=== PATIENT | male | born 1950 | race Caucasian/White ===

== ENCOUNTER 2017-07-28 13:00 | Inpatient (IN) | payer MEDICARE, MEDICAID ==
[2017-07-28] MEDS ORDERED: Sodium Chloride 0.9% 5 ML Syringe FLUSH PRN (13:09)
--- NOTE | 2017-07-28 14:02 | EDM.PDOC ---
ED HPI GENERAL MEDICAL PROBLEM - General Chief Complaint: Respiratory Problem Stated Complaint: SOB/WEAKNESS/HYPOXIA Time Seen by Provider: 07/28/17 13:30 Source of Information: Reports: Patient, EMS, Old Records History Limitations: Reports: No Limitations - History of Present Illness INITIAL COMMENTS - FREE TEXT/NARRATIVE: 67 YO WM presents to ER from clinic due to 3 day history of progressive shortness of breath with decreased exercise tolerance. Pt reports he went to clinic and was found to have SaO2 @79% prompting EMS and ER visit. Pt denies any chest pain or back pain. Pt denies any fever/chills, denies dizziness or syncope. Pt without any history of CAD or underlying pulmonary disease. 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: EKG, Oxygen Mid-Sternal Pain Score (Numeric/FACES): 4 - Related Data Allergies Allergy/AdvReac Type Severity Reaction Status Date / Time No Known Drug Allergies Allergy Cannot Verified 07/28/17 13:21 Remember Home Meds: Home Meds ALPRAZolam [Alprazolam] 0.25 mg PO DAILY PRN 11/16/15 [History] Glimepiride [Glimepiride] 4 mg PO DAILY 11/16/15 [History] Lisinopril [Prinivil] 40 mg PO DAILY 11/16/15 [History] Metoprolol Succinate [Toprol XL] 100 mg PO DAILY 11/16/15 [History] Simvastatin [Simvastatin] 40 mg PO DAILY 11/16/15 [History] SitaGLIPtin [Januvia] 100 mg PO DAILY 11/16/15 [History] metFORMIN HCl [Metformin HCl] 1,000 mg PO BID 11/16/15 [History] Past Medical History HEENT History: Reports: Other (See Below) Other HEENT History: blind Cardiovascular History: Reports: Hypertension Musculoskeletal History: Reports: Other (See Below) Other Musculoskeletal History: stiffness to hands - unable to straiten hands out Neurological History: Reports: Other (See Below) Other Neuro History: occ JARA Psychiatric History: Reports: Anxiety, Panic Attack Endocrine/Metabolic History: Reports: Diabetes, Type II - Infectious Disease History Infectious Disease History: Reports: Influenza - Past Surgical History HEENT Surgical History: Reports: Eye Surgery, Other (See Below) Social & Family History - Tobacco Use Smoking Status *Q: Never Smoker - Recreational Drug Use Recreational Drug Use: No ED ROS GENERAL - Review of Systems Review Of Systems: See Below Constitutional: Reports: No Symptoms HEENT: Reports: No Symptoms Respiratory: Reports: Shortness of Breath Cardiovascular: Reports: Dyspnea on Exertion, Edema, Orthopnea, PND Endocrine: Reports: No Symptoms GI/Abdominal: Reports: No Symptoms : Reports: No Symptoms Musculoskeletal: Reports: No Symptoms Skin: Reports: No Symptoms Neurological: Reports: No Symptoms Psychiatric: Reports: No Symptoms Hematologic/Lymphatic: Reports: No Symptoms Immunologic: Reports: No Symptoms ED EXAM, GENERAL - Physical Exam Exam: See Below Exam Limited By: No Limitations General Appearance: Alert, WD/WN, No Apparent Distress Nose: Normal Inspection, Normal Mucosa, No Blood Throat/Mouth: Normal Inspection, Normal Lips, Normal Teeth, Normal Gums, Normal Oropharynx, Normal Voice, No Airway Compromise Head: Atraumatic, Normocephalic Neck: Normal Inspection, Supple, Non-Tender, Full Range of Motion Respiratory/Chest: No Respiratory Distress, Lungs Clear, Normal Breath Sounds, No Accessory Muscle Use, Chest Non-Tender Cardiovascular: Normal Peripheral Pulses, Regular Rate, Rhythm, No Edema, No Gallop, No JVD, No Murmur, No Rub GI/Abdominal: Normal Bowel Sounds, Soft, Non-Tender, No Organomegaly, No Distention, No Abnormal Bruit, No Mass Back Exam: Normal Inspection, Full Range of Motion, NT Extremities: Pedal Edema Neurological: Alert, Oriented, CN II-XII Intact, Normal Cognition, Normal Gait, Normal Reflexes, No Motor/Sensory Deficits Psychiatric: Normal Affect, Normal Mood Skin Exam: Warm, Dry, Intact, Normal Color, No Rash Lymphatic: No Adenopathy EKG INTERPRETATION EKG Date: 07/28/17 Time: 13:23 Rhythm: NSR (55) Rate (Beats/Min): 55 [place]: Normal P-Wave: Present QRS: Normal ST-T: Normal QT: Normal Comparison: NA - No Prior EKG Course - Vital Signs Last Recorded V/S: Last Vital Signs Temp 35.9 C 07/28/17 13:21 Pulse 62 07/28/17 13:21 Resp 18 07/28/17 13:21 BP 153/52 H 07/28/17 13:21 Pulse Ox 99 07/28/17 13:21 - Orders/Labs/Meds Orders: Active Orders 24 hr Category Date Time Status EKG Documentation Completion [RC] ASDIRECTED Care 07/28/17 13:10 Active Peripheral IV Care [RC] . DIRECTED Care 07/28/17 13:10 Active RT Aerosol Therapy [RC] ASDIRECTED Care 07/28/17 16:00 Ordered Chest 2V [CR] Stat Exams 07/28/17 13:09 Taken Dextrose 50% in Water Med 07/28/17 16:00 Once 50 ml IVPUSH ONETIME ONE Furosemide [Lasix] Med 07/28/17 16:00 Once 40 mg IVPUSH NOW ONE Sodium Chloride 0.9% [Syrex Flush] Med 07/28/17 13:09 Active 5 ml FLUSH Q8HR PRN Peripheral IV Insertion Adult [OM.PC] Routine Oth 07/28/17 13:09 Ordered EKG 12 Lead [EK] Routine Ther 07/28/17 13:09 Ordered Medication Orders Sodium Chloride (Syrex Flush) 5 ml FLUSH Q8HR PRN PRN Reason: Keep Vein Open Labs: Laboratory Tests 07/28/17 07/28/17 07/28/17 Range/Units 13:19 13:19 13:19 WBC 9.7 (5.0-10.0) 10^3/uL RBC 3.26 L (4.50-6.00) 10^6/uL Hgb 9.8 L (13.0-17.0) g/dL Hct 30.3 L (40.0-52.0) % MCV 92.8 H (82.0-92.0) fL MCH 30.0 (27.0-31.0) pg MCHC 32.3 (32.0-36.0) g/dL RDW 14.6 H (11.5-14.5) % Plt Count 143 L (150-300) 10^3/uL MPV 9.3 (7.4-10.4) fL Neut % (Auto) 88.2 H (50.0-70.0) % Lymph % (Auto) 5.2 L (20.0-40.0) % Traill % (Auto) 6.4 (2.0-8.0) % Eos % (Auto) 0.2 L (1.0-3.0) % Baso % (Auto) 0.0 (0.0-1.0) % Neut # (Auto) 8.6 H (2.5-7.0) 10^3/uL Lymph # (Auto) 0.5 L (1.0-4.0) 10^3/uL Traill # (Auto) 0.6 (0.1-0.8) 10^3/uL Eos # (Auto) 0.0 L (0.1-0.3) 10^3/uL Baso # (Auto) 0.0 (0.0-0.1) 10^3/uL PT 9.7 (8.9-11.4) SEC INR 1.0 (0.9-1.1) APTT 25.8 (20.8-31.2) SEC Sodium 138 (136-145) mmol/L Potassium 6.3 H (3.3-5.3) mmol/L Chloride 107 (98-115) mmol/L Carbon Dioxide 21.4 (21.0-32.0) mmol/L BUN 75 H* (6-25) mg/dL Creatinine 3.39 H (0.51-1.17) mg/dL Est Cr Clr Drug Dosing 20.46 mL/min Estimated GFR (MDRD) 18 mL/min Glucose 331 H (70-110) mg/dL Calcium 8.5 L (8.7-10.3) mg/dL Total Bilirubin 0.5 (0.2-1.0) mg/dL AST 21 (15-37) U/L ALT 27 (12-78) U/L Alkaline Phosphatase 73 (46-116) IU/L Creatine Kinase 458 H* (26-276) U/L CK-MB (CK-2) 3.30 (0.00-4.30) ng/mL Troponin I 0.05 (0.00-0.070) ng/mL B-Natriuretic Peptide 690 H (0-100) pg/mL Total Protein 6.7 (6.4-8.2) g/dL Albumin 3.14 (3.00-4.80) g/dL 07/28/17 Range/Units 15:15 WBC (5.0-10.0) 10^3/uL RBC (4.50-6.00) 10^6/uL Hgb (13.0-17.0) g/dL Hct (40.0-52.0) % MCV (82.0-92.0) fL MCH (27.0-31.0) pg MCHC (32.0-36.0) g/dL RDW (11.5-14.5) % Plt Count (150-300) 10^3/uL MPV (7.4-10.4) fL Neut % (Auto) (50.0-70.0) % Lymph % (Auto) (20.0-40.0) % Traill % (Auto) (2.0-8.0) % Eos % (Auto) (1.0-3.0) % Baso % (Auto) (0.0-1.0) % Neut # (Auto) (2.5-7.0) 10^3/uL Lymph # (Auto) (1.0-4.0) 10^3/uL Traill # (Auto) (0.1-0.8) 10^3/uL Eos # (Auto) (0.1-0.3) 10^3/uL Baso # (Auto) (0.0-0.1) 10^3/uL PT (8.9-11.4) SEC INR (0.9-1.1) APTT (20.8-31.2) SEC Sodium (136-145) mmol/L Potassium 6.3 H (3.3-5.3) mmol/L Chloride (98-115) mmol/L Carbon Dioxide (21.0-32.0) mmol/L BUN (6-25) mg/dL Creatinine (0.51-1.17) mg/dL Est Cr Clr Drug Dosing mL/min Estimated GFR (MDRD) mL/min Glucose (70-110) mg/dL Calcium (8.7-10.3) mg/dL Total Bilirubin (0.2-1.0) mg/dL AST (15-37) U/L ALT (12-78) U/L Alkaline Phosphatase (46-116) IU/L Creatine Kinase (26-276) U/L CK-MB (CK-2) (0.00-4.30) ng/mL Troponin I (0.00-0.070) ng/mL B-Natriuretic Peptide (0-100) pg/mL Total Protein (6.4-8.2) g/dL Albumin (3.00-4.80) g/dL Meds: Medications Generic Name Dose Route Start Last Admin Trade Name Freq PRN Reason Stop Dose Admin Sodium Chloride 5 ml 07/28/17 13:09 Syrex Flush FLUSH Q8HR PRN Keep Vein Open Discontinued Medications Generic Name Dose Route Start Last Admin Trade Name Freq PRN Reason Stop Dose Admin Albuterol 2.5 mg 07/28/17 15:59 Proventil Neb Soln NEB 07/28/17 16:00 ONETIME ONE Insulin Human Regular 10 unit 07/28/17 15:59 Novolin R IV 07/28/17 16:00 ONETIME ONE Protocol Sodium Bicarbonate 50 meq 07/28/17 15:59 Sodium Bicarbonate 8.4% IVPUSH 07/28/17 16:00 ONETIME ONE - Radiology Interpretation Free Text/Narrative:: CXR- bilateral small pleural effusions Departure - Departure Time of Disposition: 16:02 Disposition: DC/Tfer to Acute Hospital 02 Condition: Poor Clinical Impression: Hyperkalemia Renal failure (ARF), acute on chronic Qualifiers: Acute renal failure type: unspecified Congestive heart failure (CHF) Qualifiers: Congestive heart failure type: unspecified congestive heart failure type Congestive heart failure chronicity: acute Qualified Code(s): I50.9 - Heart failure, unspecified - Discharge Information Referrals: Willian Lopez PA-C [Primary Care Provider] - Forms: ED Department Discharge, Interfacility Transfer EMTALA - My Orders Last 24 Hours: My Active Orders 07/28/17 13:09 Chest 2V [CR] Stat Sodium Chloride 0.9% [Syrex Flush] 5 ml FLUSH Q8HR PRN Peripheral IV Insertion Adult [OM.PC] Routine EKG 12 Lead [EK] Routine 07/28/17 13:10 EKG Documentation Completion [RC] ASDIRECTED Peripheral IV Care [RC] . DIRECTED 07/28/17 16:00 RT Aerosol Therapy [RC] ASDIRECTED Dextrose 50% in Water 50 ml IVPUSH ONETIME ONE Furosemide [Lasix] 40 mg IVPUSH NOW ONE - Assessment/Plan Last 24 Hours: My Active Orders 07/28/17 13:09 Chest 2V [CR] Stat Sodium Chloride 0.9% [Syrex Flush] 5 ml FLUSH Q8HR PRN Peripheral IV Insertion Adult [OM.PC] Routine EKG 12 Lead [EK] Routine 07/28/17 13:10 EKG Documentation Completion [RC] ASDIRECTED Peripheral IV Care [RC] . DIRECTED 07/28/17 16:00 RT Aerosol Therapy [RC] ASDIRECTED Dextrose 50% in Water 50 ml IVPUSH ONETIME ONE Furosemide [Lasix] 40 mg IVPUSH NOW ONE Assessment:: 1. Hypoxia 2. mild CHF 3. Acute on chronic renal failure Plan: 1. transfer to [facility] 2. Dr Cortes hospitalist accepting 3. lasix 40mg IV 4. bicarb 1 amp now 5. albuterol neb x 1 6. insulin 10units IV now 7. D50 1 amp now
[2017-07-28] MEDS ORDERED: Albuterol 0.083% 2.5 MG/3 ML Neb Soln NEB ONE (15:59)
[2017-07-28] MEDS ORDERED: Insulin Regular, Human 100 Units/ML 10 ML Vial IV ONE (15:59)
[2017-07-28] MEDS ORDERED: Sodium Bicarbonate 8.4% 50 MEQ/50 ML Syringe IVPUSH ONE (15:59)
[2017-07-28] MEDS ORDERED: Albuterol 0.083% 2.5 MG/3 ML Neb Soln ONE (16:00)
[2017-07-28] MEDS ORDERED: 50% Dextrose in Water 50 ML Syringe IVPUSH ONE (16:00)
[2017-07-28] MEDS ORDERED: Furosemide 40 MG/4 ML VIAL IVPUSH ONE (16:00)
[2017-07-28] MEDS ORDERED: Calcium Gluconate 10% 1 GM/10 ML SDV IVPUSH ONE (17:36)
[2017-07-28] MEDS: Sodium Chloride 0.9% 1,000 ML IV SCH ×2 (18:13→20:16)
[2017-07-28] MEDS: Insulin Aspart 100 Units/ML 3 ML Pen SUBCUT SCH ×2 (18:15→21:34)
[2017-07-28] MEDS ORDERED: Atropine 0.1 MG/ML 10 ML Syringe IVPUSH PRN (19:36)
[2017-07-28] MEDS ORDERED: EPINEPHrine 1:10,000 1 MG/10 ML Syringe IVPUSH PRN (19:36)
[2017-07-28] MEDS ORDERED: Lidocaine 2% 100 MG/5 ML Syringe IVPUSH PRN (19:36)
[2017-07-28] MEDS ORDERED: Nitroglycerin 0.4 MG Tab.SL SL PRN (19:36)
[2017-07-28] MEDS: Polyvinyl Alcohol 1.4% Ophth Soln 15 ML Bottle EYEBOTH SCH (20:18)
[2017-07-28] MEDS ORDERED: atorvaSTATin 40 MG Tab PO SCH (21:00)
[2017-07-28] MEDS ORDERED: Non-Formulary Medication 1 Each (Metformin Hcl [Metformin Hcl] 1,000 MG) PO SCH (21:00)
[2017-07-28] MEDS ORDERED: LORazepam 0.5 MG Tab PO ONE (21:17)
[2017-07-28] MEDS ORDERED: LORazepam 0.5 MG Tab PO PRN (21:17)
--- NOTE | 2017-07-28 23:32 | HP ---
HISTORY OF PRESENT ILLNESS: This is a 67-year-old male patient who was not been feeling well at home. He started having some shortness of breath. He states that ever since his Norvasc was increased from 5 mg to 10 mg, he has noted some swelling to his ankles. He states that his urination has been decreasing more and more. He became short of breath, just was not feeling well. He came to the clinic today for further evaluation and treatment. The patient then was transferred by ambulance to the [facility] Emergency Room for treatment. PAST MEDICAL HISTORY: The patient has a history of diabetes mellitus type 2, hyperlipidemia, almost completely blind, hypertension, history of anxiety. MEDICATIONS: The patient was taking at home. He was on Artificial Tears. He was on Travatan Z eyedrops, Azopt eyedrops, atorvastatin 40 mg daily, Lexapro 20 mg daily, Actos 15 mg daily, Norvasc 10 mg daily, Ativan 0.5 mg daily as needed, Amaryl 4 mg daily, Toprol-XL 100 mg daily, lisinopril 40 mg daily, metformin 1000 mg twice a day, and Januvia 100 mg daily. ALLERGIES: He has no known drug allergies. SOCIAL/PERSONAL HISTORY: The patient lives at home by himself. He does have home health nurse come in once a week to set up his medications. He denies any alcohol or tobacco use. REVIEW OF SYSTEMS: CONSTITUTIONAL: No He does complain of fatigue, swelling, weight gain, just not feeling well. Appetite is good. No fatigue. EYES: No recent visual changes. ENT: No sinus congestion or hoarseness. CARDIOVASCULAR: No chest pain or palpitations. RESPIRATORY: He does complain of shortness of breath, some cough. GI: No vomiting, diarrhea or melena. : No dysuria or hematuria. MUSCULOSKELETAL: No new bone pain or joint swelling. INTEGUMENTARY: No rash or pruritus. NEUROLOGIC/PSYCHIATRIC: No recent headache or focal weakness. No depressive symptoms. ENDOCRINE: No heat or cold intolerances or polydipsia. HEMATOLOGIC/LYMPHATIC: No excessive bruising or lymph node swelling. ALLERGIC/IMMUNOLOGIC: No hives or recurrent infections. PHYSICAL EXAMINATION: GENERAL: This is an elderly white male in no acute distress. VITAL SIGNS: Blood pressure is 140/56, pulse is 64, respiratory rate is 20, oxygen saturation on 2 L nasal cannula is 94%. HEENT: Head is normocephalic. The patient is blind. EOMs are not intact. He can barely see just shadowing. Nose is clear. No pharyngeal erythema noted. NECK: Supple. No JVD. Trachea midline. LUNGS: Sounds are clear in upper lobes, diminished at bilateral bases. CARDIAC: Regular rate and rhythm. Slightly bradycardic at about 60 to 59 beats per minute. ABDOMEN: Nontender, nondistended. Bowel sounds present x4. EXTREMITIES: No joint effusions. Full range of motion. NEUROLOGIC: He is grossly intact. The patient is alert, orientated. DIAGNOSTIC: The patient's EKG that was obtained in the emergency room showed sinus bradycardia at 55 beats per minute. Chest x-ray that was obtained in the emergency room, on the report impression reads per Radiology. 1. Limited exam. 2. Small bilateral effusions. This is by Dr. Alexandre Osorio, radiologist. The patient's lab work that was obtained in emergency room. CBC shows white count within normal range at 9.7, hemoglobin low at 9.8, PT 9.7, INR 1.0, PTT 25.8. Potassium is elevated at 6.3, BUN is 75, creatinine is elevated at 3.39, GFR is 18, glucose is 331, calcium is 8.5. Creatine kinase is elevated at 458. CK MB is within normal range at 3.3. Troponin is negative. Brain natriuretic peptide is elevated at 690. Albumin is within normal range at 3.14. Total protein is within normal range at 6.7. IMPRESSION/PLAN: 1. Acute renal failure. Plan: The patient's lab work showed GFR down to 18, BUN is 75, creatinine is 3.39. The patient's last creatinine that I could find was 1.86. We are going to stop all nephrotoxic medications. We are going to stop lisinopril, stop Norvasc, stop Januvia, stop metformin. We are going to run normal saline at 50 mL/h. We are going to recheck a basic metabolic panel at 8 p.m. tonight and also a comprehensive metabolic panel in the morning to further assess kidney function. 2. Diabetes mellitus type 2. We are going to continue with Actos 15 mg daily along with Amaryl 4 mg daily, we will cover high sugars. We are going to put the patient on sliding scale NovoLog medium dose. Check blood sugars four times a day. ADA diet along with a renal diet. 3. History of hyperlipidemia. Plan: Continue with Lipitor 40 mg daily. 4. Near blindness. Continue with Azopt eyedrops along with Artificial Tears and travoprost eyedrops as ordered. 5. History of hypertension. Plan: With high potassium level, we will put the patient on telemetry. We are going to give the patient 1 g of calcium gluconate IV push one time. We will continue with Toprol-XL 100 mg daily. 6. History of anxiety. Plan: Continue with Lexapro 20 mg daily. He may take Ativan 0.5 mg daily as needed. 7. Hyperkalemia. Plan: Nephrology was consulted at [facility] at this time for the hyperkalemia with acute renal failure. Lasix 40 mg IV push was given, one amp D50 along with 10 units of regular insulin was also given. The patient was also given albuterol nebulizer, also one amp of sodium bicarb. We will repeat a basic metabolic panel at 8 p.m. tonight. OVERALL PLAN: The patient will be transferred to [place] in [place] tomorrow for Nephrology consult. Due to weather conditions tonight, the patient will be held here in [place] for treatment until he can be transferred to [place] for further evaluation and treatment. /[id number]/MODL MTDD
[2017-07-29] MEDS ORDERED: Glimepiride 2 MG Tab PO SCH (08:00)
[2017-07-29] MEDS: Insulin Aspart 100 Units/ML 3 ML Pen SUBCUT SCH ×2 (08:05→12:04)
[2017-07-29] MEDS: Polyvinyl Alcohol 1.4% Ophth Soln 15 ML Bottle EYEBOTH SCH (08:09)
[2017-07-29 08:50] LABS: O2 DELIVERY DEVICE NASAL CANNULA
[2017-07-29 08:54] LABS: BASE EXCESS ARTERIAL -7 mmol/L (-2-3); BICARBONATE,ARTERIAL 19.2 mmol/L (22-26); O2 SATURATION ARTERIAL 89 % (95-98); PCO2 ARTERIAL 38 mmHG (35-45)
[2017-07-29 08:57] LABS: PO2 ARTERIAL 62 mmHG (80-105)
[2017-07-29] MEDS ORDERED: Escitalopram 10 MG Tab PO SCH (09:00)
[2017-07-29] MEDS ORDERED: LORazepam 0.5 MG Tab PO SCH (09:00)
[2017-07-29] MEDS ORDERED: Metoprolol Succinate 50 MG Tab.ER PO SCH (09:00)
[2017-07-29 10:54] VITALS: BP 152/73
--- NOTE | 2017-07-29 11:50 | PCM.PN ---
- General Info Date of Service: 07/29/17 Functional Status: Reports: Pain Controlled, Tolerating Diet. Denies: Ambulating, Incentive Spirometry - Review of Systems General: Denies: Fever, Weakness, Fatigue HEENT: Reports: No Symptoms Pulmonary: Reports: Shortness of Breath. Denies: Pleuritic Chest Pain, Cough, Sputum, Wheezing Cardiovascular: Reports: Dyspnea on Exertion. Denies: Chest Pain, Palpitations , Orthopnea Gastrointestinal: Reports: No Symptoms Genitourinary: Reports: No Symptoms Musculoskeletal: Reports: No Symptoms Skin: Reports: No Symptoms Neurological: Reports: No Symptoms Psychiatric: Reports: Anxiety - Patient Data Vitals - Most Recent: Last Vital Signs Temp 97.9 F 07/29/17 10:53 Pulse 58 L 07/29/17 10:53 Resp 20 07/29/17 10:53 BP 152/73 H 07/29/17 10:53 Pulse Ox 95 07/29/17 10:53 Weight - Most Recent: 258 lb 3.2 oz I&O - Last 24 Hours: Intake & Output 07/28/17 07/29/17 07/29/17 22:59 06:59 14:59 Intake Total 676 850 Output Total 625 925 Balance 51 -75 Lab Results Last 24 Hours: Laboratory Results - last 24 hr 07/28/17 07/28/17 07/28/17 Range/Units 18:02 19:15 19:35 WBC (5.0-10.0) 10^3/uL RBC (4.50-6.00) 10^6/uL Hgb (13.0-17.0) g/dL Hct (40.0-52.0) % MCV (82.0-92.0) fL MCH (27.0-31.0) pg MCHC (32.0-36.0) g/dL RDW (11.5-14.5) % Plt Count (150-300) 10^3/uL MPV (7.4-10.4) fL Neut % (Auto) (50.0-70.0) % Lymph % (Auto) (20.0-40.0) % Bryan % (Auto) (2.0-8.0) % Eos % (Auto) (1.0-3.0) % Baso % (Auto) (0.0-1.0) % Neut # (Auto) (2.5-7.0) 10^3/uL Lymph # (Auto) (1.0-4.0) 10^3/uL Bryan # (Auto) (0.1-0.8) 10^3/uL Eos # (Auto) (0.1-0.3) 10^3/uL Baso # (Auto) (0.0-0.1) 10^3/uL ABG pH (7.35-7.45) ABG pCO2 (35-45) mmHG ABG pO2 (80-105) mmHG ABG HCO3 (22-26) mmol/L ABG Total CO2 (23-27) mmol/L ABG O2 Saturation (95-98) % ABG Base Excess (-2-3) mmol/L O2 Delivery Device Sodium 142 (136-145) mmol/L Potassium 5.2 (3.3-5.3) mmol/L Chloride 110 (98-115) mmol/L Carbon Dioxide 23.0 (21.0-32.0) mmol/L BUN 76 H* (6-25) mg/dL Creatinine 3.34 H (0.51-1.17) mg/dL Est Cr Clr Drug Dosing 20.76 mL/min Estimated GFR (MDRD) 19 mL/min Glucose 247 H (70-110) mg/dL POC Glucose 218 H (74-106) mg/dl Calcium 8.8 (8.7-10.3) mg/dL Total Bilirubin (0.2-1.0) mg/dL AST (15-37) U/L ALT (12-78) U/L Alkaline Phosphatase (46-116) IU/L Creatine Kinase 383 H* (26-276) U/L CK-MB (CK-2) 2.60 (0.00-4.30) ng/mL Total Protein (6.4-8.2) g/dL Albumin (3.00-4.80) g/dL Specimen Type Urinvoid Urine Color Yellow (YELLOW) Urine Appearance Clear (CLEAR) Urine pH 5.0 (5.0-9.0) Ur Specific [place] 1.015 (1.005-1.030) Urine Protein >=300 H (NEGATIVE) mg/dL Urine Glucose (UA) 100 H (NEGATIVE) mg/dL Urine Ketones Negative (NEGATIVE) mg/dL Urine Occult Blood Small H (NEGATIVE) Urine Nitrite Negative (NEGATIVE) Urine Bilirubin Negative (NEGATIVE) Urine Urobilinogen 0.2 (0.2-1.0) E.U./dL Ur Leukocyte Esterase Negative (NEGATIVE) Urine RBC 0-5 /HPF Urine WBC 0-5 /HPF Ur Epithelial Cells Few /LPF Urine Bacteria Occasional (NONE TO FEW) /HPF 07/28/17 07/29/17 07/29/17 Range/Units 21:17 06:25 07:15 WBC 10.6 H (5.0-10.0) 10^3/uL RBC 3.22 L (4.50-6.00) 10^6/uL Hgb 9.6 L (13.0-17.0) g/dL Hct 29.6 L (40.0-52.0) % MCV 91.8 (82.0-92.0) fL MCH 29.7 (27.0-31.0) pg MCHC 32.4 (32.0-36.0) g/dL RDW 14.4 (11.5-14.5) % Plt Count 140 L (150-300) 10^3/uL MPV 9.4 (7.4-10.4) fL Neut % (Auto) 79.5 H (50.0-70.0) % Lymph % (Auto) 5.4 L (20.0-40.0) % Bryan % (Auto) 13.9 H (2.0-8.0) % Eos % (Auto) 0.2 L (1.0-3.0) % Baso % (Auto) 1.0 (0.0-1.0) % Neut # (Auto) 8.4 H (2.5-7.0) 10^3/uL Lymph # (Auto) 0.6 L (1.0-4.0) 10^3/uL Bryan # (Auto) 1.5 H (0.1-0.8) 10^3/uL Eos # (Auto) 0.0 L (0.1-0.3) 10^3/uL Baso # (Auto) 0.1 (0.0-0.1) 10^3/uL ABG pH (7.35-7.45) ABG pCO2 (35-45) mmHG ABG pO2 (80-105) mmHG ABG HCO3 (22-26) mmol/L ABG Total CO2 (23-27) mmol/L ABG O2 Saturation (95-98) % ABG Base Excess (-2-3) mmol/L O2 Delivery Device Sodium (136-145) mmol/L Potassium (3.3-5.3) mmol/L Chloride (98-115) mmol/L Carbon Dioxide (21.0-32.0) mmol/L BUN (6-25) mg/dL Creatinine (0.51-1.17) mg/dL Est Cr Clr Drug Dosing mL/min Estimated GFR (MDRD) mL/min Glucose (70-110) mg/dL POC Glucose 240 H 211 H (74-106) mg/dl Calcium (8.7-10.3) mg/dL Total Bilirubin (0.2-1.0) mg/dL AST (15-37) U/L ALT (12-78) U/L Alkaline Phosphatase (46-116) IU/L Creatine Kinase (26-276) U/L CK-MB (CK-2) (0.00-4.30) ng/mL Total Protein (6.4-8.2) g/dL Albumin (3.00-4.80) g/dL Specimen Type Urine Color (YELLOW) Urine Appearance (CLEAR) Urine pH (5.0-9.0) Ur Specific [place] (1.005-1.030) Urine Protein (NEGATIVE) mg/dL Urine Glucose (UA) (NEGATIVE) mg/dL Urine Ketones (NEGATIVE) mg/dL Urine Occult Blood (NEGATIVE) Urine Nitrite (NEGATIVE) Urine Bilirubin (NEGATIVE) Urine Urobilinogen (0.2-1.0) E.U./dL Ur Leukocyte Esterase (NEGATIVE) Urine RBC /HPF Urine WBC /HPF Ur Epithelial Cells /LPF Urine Bacteria (NONE TO FEW) /HPF 07/29/17 07/29/17 Range/Units 07:15 08:45 WBC (5.0-10.0) 10^3/uL RBC (4.50-6.00) 10^6/uL Hgb (13.0-17.0) g/dL Hct (40.0-52.0) % MCV (82.0-92.0) fL MCH (27.0-31.0) pg MCHC (32.0-36.0) g/dL RDW (11.5-14.5) % Plt Count (150-300) 10^3/uL MPV (7.4-10.4) fL Neut % (Auto) (50.0-70.0) % Lymph % (Auto) (20.0-40.0) % Bryan % (Auto) (2.0-8.0) % Eos % (Auto) (1.0-3.0) % Baso % (Auto) (0.0-1.0) % Neut # (Auto) (2.5-7.0) 10^3/uL Lymph # (Auto) (1.0-4.0) 10^3/uL Bryan # (Auto) (0.1-0.8) 10^3/uL Eos # (Auto) (0.1-0.3) 10^3/uL Baso # (Auto) (0.0-0.1) 10^3/uL ABG pH 7.31 L (7.35-7.45) ABG pCO2 38 (35-45) mmHG ABG pO2 62 L* (80-105) mmHG ABG HCO3 19.2 L (22-26) mmol/L ABG Total CO2 20 L (23-27) mmol/L ABG O2 Saturation 89 L (95-98) % ABG Base Excess -7 L (-2-3) mmol/L O2 Delivery Device Nasal cannula Sodium 140 (136-145) mmol/L Potassium 5.2 (3.3-5.3) mmol/L Chloride 108 (98-115) mmol/L Carbon Dioxide 22.1 (21.0-32.0) mmol/L BUN 71 H* (6-25) mg/dL Creatinine 3.10 H (0.51-1.17) mg/dL Est Cr Clr Drug Dosing 22.37 mL/min Estimated GFR (MDRD) 20 mL/min Glucose 249 H (70-110) mg/dL POC Glucose (74-106) mg/dl Calcium 8.6 L (8.7-10.3) mg/dL Total Bilirubin 0.5 (0.2-1.0) mg/dL AST 21 (15-37) U/L ALT 25 (12-78) U/L Alkaline Phosphatase 66 (46-116) IU/L Creatine Kinase 507 H* (26-276) U/L CK-MB (CK-2) 3.10 (0.00-4.30) ng/mL Total Protein 6.2 L (6.4-8.2) g/dL Albumin 2.87 L (3.00-4.80) g/dL Specimen Type Urine Color (YELLOW) Urine Appearance (CLEAR) Urine pH (5.0-9.0) Ur Specific [place] (1.005-1.030) Urine Protein (NEGATIVE) mg/dL Urine Glucose (UA) (NEGATIVE) mg/dL Urine Ketones (NEGATIVE) mg/dL Urine Occult Blood (NEGATIVE) Urine Nitrite (NEGATIVE) Urine Bilirubin (NEGATIVE) Urine Urobilinogen (0.2-1.0) E.U./dL Ur Leukocyte Esterase (NEGATIVE) Urine RBC /HPF Urine WBC /HPF Ur Epithelial Cells /LPF Urine Bacteria (NONE TO FEW) /HPF Med Orders - Current: Current Medications Artificial Tears (Liquitears 1.4% Ophth Soln) 0 ml EYEBOTH BID [facility] Last Admin: 07/29/17 08:09 Dose: Not Given Atorvastatin Calcium (Lipitor) 40 mg PO BEDTIME [facility] Last Admin: 07/28/17 20:14 Dose: 40 mg Atropine Sulfate (Atropine 0.1 Mg/Ml) 0 mg IVPUSH ASDIRECTED PRN PRN Reason: Heart Epinephrine HCl (Epinephrine 1:10,000) 1 mg IVPUSH ASDIRECTED PRN PRN Reason: Heart Escitalopram Oxalate (Lexapro) 20 mg PO DAILY [facility] Last Admin: 07/29/17 08:04 Dose: 20 mg Glimepiride (Amaryl) 4 mg PO WITHBREAKFAST [facility] Last Admin: 07/29/17 08:05 Dose: 4 mg Sodium Chloride (Normal Saline) 1,000 mls @ 50 mls/hr IV ASDIRECTED [facility] Last Admin: 07/28/17 20:16 Dose: 50 mls/hr Insulin Aspart (Novolog) 0 unit SUBCUT WITHMEALSANDBED [facility] PRN Reason: Protocol Last Admin: 07/29/17 08:05 Dose: 4 unit Lidocaine HCl (Xylocaine 2%) 0 mg IVPUSH ASDIRECTED PRN PRN Reason: Heart Lorazepam (Ativan) 0.5 mg PO DAILY PRN PRN Reason: Anxiety Last Admin: 07/29/17 10:27 Dose: 0.5 mg Metoprolol Succinate (Toprol Xl) 100 mg PO DAILY [facility] Last Admin: 07/29/17 08:04 Dose: 100 mg Nitroglycerin (Nitrostat) 0.4 mg SL ASDIRECTED PRN PRN Reason: Heart Non-Formulary Medication (Brinzolamide [Azopt 1% Ophth Susp]) 1 drop EYEBOTH BID [facility]LEJANDRINA Non-Formulary Medication (Travoprost [Travatan Z]) 1 drop EYERT BEDTIME [facility]DR[facility] Pioglitazone HCl (Actos) 15 mg PO DAILY [facility] Last Admin: 07/29/17 08:08 Dose: Not Given Sodium Chloride (Syrex Flush) 5 ml FLUSH Q8HR PRN PRN Reason: Keep Vein Open Discontinued Medications Albuterol (Proventil Neb Soln) 2.5 mg NEB ONETIME ONE Stop: 07/28/17 16:00 Last Admin: 07/28/17 16:06 Dose: 2.5 mg Albuterol (Proventil Neb Soln) Confirm Administered Dose 2.5 mg .ROUTE .STK-MED ONE Stop: 07/28/17 16:01 Last Admin: 07/28/17 16:27 Dose: Not Given Calcium Gluconate (Calcium Gluconate) 1 gm IVPUSH ONETIME ONE Stop: 07/28/17 17:37 Last Admin: 07/28/17 18:09 Dose: 1 gm Dextrose/Water (Dextrose 50% In Water) 50 ml IVPUSH ONETIME ONE Stop: 07/28/17 16:01 Last Admin: 07/28/17 16:20 Dose: 50 ml Furosemide (Lasix) 40 mg IVPUSH NOW ONE Stop: 07/28/17 16:01 Last Admin: 07/28/17 16:11 Dose: 40 mg Insulin Human Regular (Novolin R) 10 unit IV ONETIME ONE PRN Reason: Protocol Stop: 07/28/17 16:00 Last Admin: 07/28/17 16:17 Dose: 10 unit Lorazepam (Ativan) 0.5 mg PO DAILY [facility] Lorazepam (Ativan) 0.5 mg PO ONETIME ONE Stop: 07/28/17 21:18 Last Admin: 07/28/17 21:34 Dose: 0.5 mg Non-Formulary Medication (Metformin Hcl [Metformin Hcl]) 1,000 mg PO BID [facility]LEJANDR[facility] Sodium Bicarbonate (Sodium Bicarbonate 8.4%) 50 meq IVPUSH ONETIME ONE Stop: 07/28/17 16:00 Last Admin: 07/28/17 16:28 Dose: 50 meq - Exam Quality Assessment: Supplemental Oxygen General: Alert, Oriented Lungs: Clear to Auscultation, Decreased Breath Sounds Cardiovascular: Regular Rate, Regular Rhythm GI/Abdominal Exam: Normal Bowel Sounds, Soft, Non-Tender, No Organomegaly, No Distention, No Abnormal Bruit, No Mass, Pelvis Stable Skin: Warm, Dry, Intact Neurological: No New Focal Deficit Psy/Mental Status: Anxious - Problem List Review Problem List Initiated/Reviewed/Updated: Yes - My Orders Last 24 Hours: My Active Orders 07/29/17 08:49 Urinary Catheter Assessment [RC] ASDIRECTED 07/29/17 09:00 West Catheter Insertion [Insert Urinary Catheter] [OM.PC] Q24H 07/29/17 10:57 Resuscitation Status Routine 07/29/17 11:03 Discontinue Telemetry Monitoring [Cardiac Monitoring Discontinue] [RC] Click to Edit 07/30/17 09:00 West Catheter Insertion [Insert Urinary Catheter] [OM.PC] Q24H 07/31/17 09:00 West Catheter Insertion [Insert Urinary Catheter] [OM.PC] Q24H 08/01/17 09:00 West Catheter Insertion [Insert Urinary Catheter] [OM.PC] Q24H - Plan Plan:: BRIEF HISTORY CODE STATUS, full code IMPRESSION Acute renal failure, renal tubular acidosis, continue holding nephrotoxic agents , gentle fluids, creatinine improving Metabolic acidosis, pH 7.1, PCO2 38, bicarbonate 19.2, PO2 62, compensating, hypoxemia, primary, gap vs non-gap, by mouth bicarbonate Hypoxemia, high flow oxygen Hyperkalemia, now normal, removed telemetry, holding RUPERTO inhibitor Bilateral pleural effusions, small diuretics, ICS Anemia, normocytic normochromic RDW normal, likely chronic disease renal Heart failure, clinically, echo on file, elevated BNP, hold RUPERTO inhibitor for now, diuretics, lost 1 pound, strict I&O, West catheter T2 DM HTN HLD Anxiety, increased Blindness,
[2017-07-29] MEDS: Sodium Chloride 0.9% 1,000 ML IV SCH (12:51)
[2017-07-29] MEDS ORDERED: TRAVOPROST 0.004% EYERT SCH (21:00)
[2017-07-29] MEDS ORDERED: Melatonin 3 MG Tab PO SCH (21:00)
[2017-07-29] MEDS ORDERED: BRINZOLAMIDE EYEBOTH SCH (21:00)
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
== END 2017-07-29 13:15 | DRG 683 ==
LOC: KA.ED 13:00 → KA.MS 17:25
PROVIDERS: ADMIT Physician Assistant Medical; ATTEND Physician Assistant
DX: N17.9 Acute kidney failure, unspecified (principal); J90 Pleural effusion, not elsewhere classified; I13.0 Hypertensive heart and chronic kidney disease with heart failure and stage 1 through stage 4 chronic kidney disease, or unspecified chronic kidney disease; E87.2 Acidosis; R09.02 Hypoxemia; E87.5 Hyperkalemia; D63.1 Anemia in chronic kidney disease; N18.9 Chronic kidney disease, unspecified; E11.9 Type 2 diabetes mellitus without complications; E78.5 Hyperlipidemia, unspecified; I10 Essential (primary) hypertension; M25.642 Stiffness of left hand, not elsewhere classified; F41.9 Anxiety disorder, unspecified; M25.641 Stiffness of right hand, not elsewhere classified; H54.7 Unspecified visual loss; F17.200 Nicotine dependence, unspecified, uncomplicated; Z79.899 Other long term (current) drug therapy
CPT/HCPCS: 36415; 71020; 80053; 82550; 82553; 83880; 84132; 84484; 85025; 85610; 85730; 96374; 96375; 99285; J1817; J1940; J7620; 36600; 51702; 80048; 81001; 82570; 82803; 82962; 84156; 93005; 99284; A9270-GY; J0610; J1815-GY; J7030; J7060